=== PATIENT | male | born 1980 | race Hispanic/Latino ===

== ENCOUNTER 2020-02-27 02:53 | Emergency (ER) | payer SELFPAY | END 2020-02-27 03:46 | disposition home or self-care (01) | LOC: ERS 02:53 | DX: S01.01XA Laceration without foreign body of scalp, initial encounter (principal); W18.2XXA Fall in (into) shower or empty bathtub, initial encounter; Y92.002 Bathroom of unspecified non-institutional (private) residence as the place of occurrence of the external cause | CPT/HCPCS: 99282 ==

== ENCOUNTER 2021-07-02 20:28 | Emergency (ER) | payer SELFPAY ==
[~2021-07-02 20:28] MED LIST: Iopamidol-370 76% 500 ML 1 ML ONE
[2021-07-02 22:10] LABS: ALT (SGPT) 127 U/L (8-55); AST (SGOT) 166 U/L (5-34); Alkaline Phosphatase 180 U/L (40-110); Anion Gap 12 mmol/L (10-20); BUN (Urea Nitrogen) 6 mg/dL (8.9-20.6); Bilirubin, Total 1.6 mg/dL (0.2-1.2); Calc. Creatinine Clearance 0 mL/min (70-130); Calcium 9.8 mg/dL (7.8-10.44); Carbon Dioxide 29 mmol/L (22-29); Chloride 100 mmol/L (98-107); Globulin 4.1 g/dL (2.4-3.5); Glucose 137 mg/dL (70-105); Potassium 4.3 mmol/L (3.5-5.1); Protein, Total 8.1 g/dL (6.0-8.3); Sodium 137 mmol/L (136-145)
[2021-07-02 22:36] LABS: #Eosinphils 0.1 thou/uL (0.0-0.7); #Lymphocytes 1.6 thou/uL (1.20-3.40); #Monocytes 0.9 thou/uL (0.11-0.59); #Neutrophils 4.3 thou/uL (1.40-6.50); %Basophils 0.5 % (0.0-1.0); %Eosinophils 1.2 % (0.0-10.0); %Lymphocytes 23.1 % (21.0-51.0); %Monocytes 13.1 % (0.0-10.0); %Neutrophils 62.2 % (42.0-75.0); Mean Corpuscular HGB CONC 31.8 g/dL (32.0-36.0); Mean Corpuscular Hemoglobin 30.7 pg (27.0-31.0); Mean Corpuscular Volume 96.5 fL (78.0-98.0); Mean Platelet Volume 9.5 fL (7.4-10.4); Platelet Count 125 thou/uL (130-400); RBC Distribution Width 12.7 % (11.5-14.5); White Blood Cell (WBC) Count 6.9 thou/uL (4.8-10.8)
[2021-07-02] MEDS ORDERED: Morphine 4 MG/ML VIAL ONE (22:59)
[2021-07-02] MEDS ORDERED: Ampicillin 2 GM VIAL ONE (23:00)
[2021-07-02] MEDS ORDERED: Ondansetron PF 4 MG/2 ML Vial ONE (23:00)
[2021-07-02] MEDS ORDERED: Ampicillin/Sulbactam 3 GM in Sodium Chloride 0.9% 100 ML IVPB SCH (23:15)
[2021-07-03] MEDS ORDERED: HYDROcodone/Acetaminophen 5/325 mg Tablet ONE (02:18)
== END 2021-07-03 02:09 | disposition home or self-care (01) ==
LOC: ERS 20:28
DX: K04.7 Periapical abscess without sinus (principal); I10 Essential (primary) hypertension
CPT/HCPCS: 36415; 70487; 80053; 85025; 96374; 96375; J0290; J0295; J2270; J2405; J3490; Q9967

== ENCOUNTER 2022-04-07 20:22 | Emergency (ER) | payer SELFPAY ==
[2022-04-07 21:33] LABS: Hemoglobin 14.9 g/dL (14.0-18.0); Mean Corpuscular HGB CONC 32.1 g/dL (32.0-36.0); Mean Corpuscular Hemoglobin 32.3 pg (27.0-31.0); Mean Platelet Volume 8.9 fL (7.4-10.4); Platelet Count 123 thou/uL (130-400); RBC Distribution Width 13.1 % (11.5-14.5); Red Blood Cell (RBC) Count 4.62 mill/uL (4.70-6.10); White Blood Cell (WBC) Count 6.4 thou/uL (4.8-10.8)
[2022-04-07 21:46] LABS: INR-International Normal Ratio 1.1; PTT 30.8 sec (22.9-36.1); Prothrombin Time 14.1 sec (12.0-14.7)
[2022-04-07 21:52] LABS: Band 6 % (5-11); Lymphocytes 26 % (21-51); MDiff Complete? YES; Macrocytosis SLIGHT = 6-15 cells (100X) (0-5/hpf); Monocytes 6 % (0-10); Neutrophil 61 % (42-75); Platelet Morphology Comment Appears Decreased; Reactive Lymphocytes 1 % (0-10)
[2022-04-07 21:56] LABS: ALT (SGPT) 124 U/L (8-55); AST (SGOT) 205 U/L (5-34); Albumin 3.6 g/dL (3.5-5.0); Alkaline Phosphatase 209 U/L (40-110); Anion Gap 15 mmol/L (10-20); BUN (Urea Nitrogen) 6 mg/dL (8.9-20.6); Bilirubin, Total 0.9 mg/dL (0.2-1.2); Calc. Creatinine Clearance 0 mL/min (70-130); Carbon Dioxide 23 mmol/L (22-29); Chloride 102 mmol/L (98-107); Globulin 4.3 g/dL (2.4-3.5); Glucose 96 mg/dL (70-105); Potassium 3.9 mmol/L (3.5-5.1); Protein, Total 7.9 g/dL (6.0-8.3); Sodium 136 mmol/L (136-145)
== END 2022-04-07 22:46 | disposition home or self-care (01) ==
LOC: ERS 20:22
DX: K62.5 Hemorrhage of anus and rectum (principal); I10 Essential (primary) hypertension; K75.9 Inflammatory liver disease, unspecified
CPT/HCPCS: 36415; 71045; 80053; 83605; 84484; 85025; 85610; 85730; 86850; 86870; 86900; 86901; 86905

== ENCOUNTER 2022-07-09 21:51 | Inpatient (IN) | payer SELFPAY ==
[~2022-07-09 21:51] MED LIST changes: +Iopamidol 370 76% 100 ML VIAL ONE; -Iopamidol-370 76% 500 ML 1 ML ONE
[2022-07-09 23:14] LABS: Mean Corpuscular HGB CONC 32.9 g/dL (32.0-36.0); Mean Corpuscular Hemoglobin 33.4 pg (27.0-31.0); RBC Distribution Width 13.4 % (11.5-14.5); Red Blood Cell (RBC) Count 4.49 mill/uL (4.70-6.10); White Blood Cell (WBC) Count 5.7 thou/uL (4.8-10.8)
[2022-07-09] MEDS ORDERED: Ondansetron PF 4 MG/2 ML Vial ONE (23:18)
[2022-07-09] MEDS ORDERED: Morphine 4 MG/ML VIAL ONE (23:18)
[2022-07-09 23:21] LABS: ALT (SGPT) 128 U/L (8-55); AST (SGOT) 256 U/L (5-34); Albumin 3.9 g/dL (3.5-5.0); Alkaline Phosphatase 148 U/L (40-110); Anion Gap 17 mmol/L (10-20); BUN (Urea Nitrogen) 5 mg/dL (8.9-20.6); Bilirubin, Total 2.5 mg/dL (0.2-1.2); Calc. Creatinine Clearance 0 mL/min (70-130); Calcium 9.4 mg/dL (7.8-10.44); Carbon Dioxide 23 mmol/L (22-29); Chloride 101 mmol/L (98-107); Estimated GFR 115; Globulin 4.3 g/dL (2.4-3.5); Glucose 92 mg/dL (70-105); Potassium 3.8 mmol/L (3.5-5.1); Protein, Total 8.2 g/dL (6.0-8.3); Sodium 137 mmol/L (136-145)
[2022-07-10 00:03] LABS: Actual Bicarbonate (HCO3v) 26 mEq/L (22-28); Analyzer IN Cardio ER; Base Excess 3.1 mEq/L (-2.0 to +3.0); Calcium, Ionized (venous) 1.08 mmol/L (1.16-1.32); Chloride (VBG) 101 mmol/L (98-106); Potassium (VBG) 3.81 mmol/L (3.70-5.30); Sodium 137.4 mmol/L (133-146); pH (venous) 7.48 (7.32-7.43)
[2022-07-10 00:04] LABS: Band 2 % (5-11); Eosinophils 3 % (0-10); Lymphocytes 28 % (21-51); MDiff Complete? YES; Mean Platelet Volume 8.8 fL (7.4-10.4); Monocytes 20 % (0-10); Neutrophil 46 % (42-75); Platelet Count 106 thou/uL (130-400); Platelet Morphology Comment Appears Decreased
[2022-07-10] MEDS ORDERED: Ondansetron ODT 4 MG TAB SL PRN (01:30)
[2022-07-10] MEDS ORDERED: Ondansetron PF 4 MG/2 ML Vial IVP PRN (01:30)
[2022-07-10] MEDS ORDERED: Morphine 4 MG/ML VIAL ONE (01:31)
[2022-07-10 02:01] LABS: Lactic Acid 1.5 mmol/L (0.5-2.2)
[2022-07-10 02:26] VITALS: BMI 30.3
[2022-07-10] MEDS ORDERED: Cyclobenzaprine 10 MG TAB PO SCH (02:45)
[2022-07-10] MEDS ORDERED: Acetaminophen 325 MG TAB PO PRN (04:24)
[2022-07-10] MEDS ORDERED: Acetaminophen 650 MG Suppository PR PRN (04:24)
[2022-07-10] MEDS: Morphine 4 MG/ML VIAL SLOW IVP PRN ×3 (04:39→13:45)
[2022-07-10 04:58] LABS: SARS-CoV-2 NAA Rapid Test Not Detected (NotDetected)
[2022-07-10] MEDS ORDERED: Pantoprazole 40 MG VIAL IVP SCH (05:30)
[2022-07-10 07:37] LABS: ALT (SGPT) 112 U/L (8-55); AST (SGOT) 225 U/L (5-34); Albumin 3.4 g/dL (3.5-5.0); Alkaline Phosphatase 124 U/L (40-110); Anion Gap 15 mmol/L (10-20); BUN (Urea Nitrogen) 5 mg/dL (8.9-20.6); Calc. Creatinine Clearance 179 mL/min (70-130); Calcium 8.9 mg/dL (7.8-10.44); Carbon Dioxide 21 mmol/L (22-29); Chloride 101 mmol/L (98-107); Estimated GFR 116; Glucose 97 mg/dL (70-105); Magnesium 1.8 mg/dL (1.6-2.6); Phosphorus 4.1 mg/dL (2.3-4.7); Potassium 3.6 mmol/L (3.5-5.1); Protein, Total 7.4 g/dL (6.0-8.3); Sodium 133 mmol/L (136-145)
[2022-07-10 08:24] LABS: INR-International Normal Ratio 1.3; Prothrombin Time 16.3 sec (12.0-14.7)
[2022-07-10 08:25] LABS: PTT 34.1 sec (22.9-36.1)
[2022-07-10 08:32] LABS: Eosinophils 3 % (0-10); Hemoglobin 13.8 g/dL (14.0-18.0); Lymphocytes 30 % (21-51); MDiff Complete? YES; Macrocytosis SLIGHT = 6-15 cells (100X) (0-5/hpf); Mean Corpuscular HGB CONC 32.5 g/dL (32.0-36.0); Mean Corpuscular Hemoglobin 32.7 pg (27.0-31.0); Mean Platelet Volume 8.5 fL (7.4-10.4); Monocytes 15 % (0-10); Neutrophil 52 % (42-75); Ovalocytes SLIGHT = 2-5 cells (100X) (0-1/hpf); Platelet Count 87 thou/uL (130-400); Platelet Morphology Comment Appears Decreased; RBC Distribution Width 13.2 % (11.5-14.5); Red Blood Cell (RBC) Count 4.21 mill/uL (4.70-6.10); White Blood Cell (WBC) Count 4.6 thou/uL (4.8-10.8)
[2022-07-10] MEDS ORDERED: Enoxaparin Sodium 40 MG/0.4 ML SYRINGE SC SCH (09:00)
[2022-07-10] MEDS ORDERED: GoLYTELY 4,000 ml Bottle PO SCH (13:30)
[2022-07-10] MEDS ORDERED: diphenhydrAMINE 25 MG CAP PO PRN (14:43)
[2022-07-10] MEDS: Pantoprazole 40 MG VIAL IVP SCH (20:07)
[2022-07-10] MEDS: Multivit, Therapeutic 1 TAB PO SCH (20:07)
[2022-07-10] MEDS: traMADol HCl 50 MG TAB PO PRN (20:07)
[2022-07-10] MEDS: Folic Acid 1 MG TAB PO SCH (20:08)
[2022-07-10] MEDS ORDERED: Thiamine 100 MG TAB PO SCH (21:00)
[2022-07-11 05:50] LABS: ALT (SGPT) 104 U/L (8-55); AST (SGOT) 211 U/L (5-34); Alkaline Phosphatase 109 U/L (40-110); Anion Gap 9 mmol/L (10-20); BUN (Urea Nitrogen) 5 mg/dL (8.9-20.6); Bilirubin, Total 3.7 mg/dL (0.2-1.2); Calc. Creatinine Clearance 195 mL/min (70-130); Calcium 8.3 mg/dL (7.8-10.44); Carbon Dioxide 26 mmol/L (22-29); Chloride 100 mmol/L (98-107); Estimated GFR 120; Globulin 3.6 g/dL (2.4-3.5); Glucose 83 mg/dL (70-105); Iron 216 ug/dL (65-175); Iron Binding Capacity, Total 204 mcg/dL (261-462); Protein, Total 6.6 g/dL (6.0-8.3); Sodium 131 mmol/L (136-145)
[2022-07-11 06:05] LABS: Ferritin 486.93 ng/mL (22-322)
[2022-07-11 06:18] LABS: HBCM Index 0.14 S/CO (0-0.79); HBSAg Index 0.35 S/CO (0-0.99); Hep A IgM AB Non-Reactive (NonReactive); Hep A IgM S/CO 0.17 S/CO (0-0.79); Hep B Surf Ag Non-Reactive S/CO (NonReactive); Hepatitis B Core IgM Abs Non-Reactive (NonReactive)
[2022-07-11 06:21] LABS: Hep C IgG Ab Reflex HepC Qnt (NonReactive); Hep C Index 17.91 S/CO (0-0.79)
[2022-07-11 07:06] LABS: Band 2 % (5-11); Eosinophils 1 % (0-10); Hemoglobin 13.6 g/dL (14.0-18.0); Lymphocytes 38 % (21-51); MDiff Complete? YES; Mean Corpuscular HGB CONC 31.9 g/dL (32.0-36.0); Mean Corpuscular Hemoglobin 32.7 pg (27.0-31.0); Mean Platelet Volume 8.7 fL (7.4-10.4); Monocytes 9 % (0-10); Neutrophil 49 % (42-75); Platelet Count 75 thou/uL (130-400); Platelet Morphology Comment Appears Decreased; RBC Distribution Width 13.1 % (11.5-14.5); Red Blood Cell (RBC) Count 4.16 mill/uL (4.70-6.10); White Blood Cell (WBC) Count 3.2 thou/uL (4.8-10.8)
[2022-07-11] MEDS ORDERED: Fentanyl 100 MCG/2 ML VIAL ONE (07:59)
[2022-07-11] MEDS ORDERED: Succinylcholine 200 MG/10 ml SYRINGE FS ONE (08:06)
[2022-07-11] MEDS ORDERED: PROPOFOL 200 MG/20 ML VIAL ONE (08:06)
[2022-07-11] MEDS ORDERED: Lidocaine 1% MPF 2 ML VIAL ONE (08:06)
[2022-07-11] MEDS ORDERED: Ondansetron PF 4 MG/2 ML Vial ONE (08:06)
[2022-07-11] MEDS ORDERED: Pantoprazole 40 MG VIAL IVP SCH (09:00)
[2022-07-11] MEDS: Pantoprazole 40 MG VIAL IVP SCH ×2 (10:31→20:26)
[2022-07-11 15:32] LABS: ANA Symphony (Qualitative) POSITIVE (Negative); ANA Symphony (Quantitative) 1.5 Ratio (< 0.7 Negative); CENP IgG Antibody 1.2 EliAU/mL (<7 Negative); EliA Vaculitis New Method **** NEW METHOD ****; Jo-1 IgG Antibody 0.7 EliAU/mL (<7 Negative); Mitochondrial Ab 1.8 U/mL (<4 Negative); RNP70 IgG Antibody 1.3 EliAU/mL (<7 Negative); SSA/Ro IgG Antibody 9.8 EliAU/mL (<7 Negative); SSB/La IgG Antibody 0.9 EliAU/mL (<7 Negative); Scleroderma-70 IgG Antibody 1.3 EliAU/mL (<7 Negative); Smith D IgG Antibody 3.2 EliAU/mL (<7 Negative); dsDNA IgG Antibody 2.5 IU/mL (<10 Negative)
[2022-07-11] MEDS ORDERED: Ondansetron ODT 4 MG TAB PO PRN (15:54)
[2022-07-11] MEDS ORDERED: Electrolyte Replacement Protocol 1 EACH FS SCH (16:00)
[2022-07-11] MEDS ORDERED: Electrolyte Replacement Protocol FS PRN (16:00)
[2022-07-11] MEDS ORDERED: Hydrocortisone 2.5%/Pramoxine 1% CRM 30 GM TUBE PR PRN (16:00)
[2022-07-11] MEDS ORDERED: Thiamine HCl 200 MG/2 ML VIAL SLOW IVP SCH (16:00)
[2022-07-11] MEDS ORDERED: Magnesium 2 GM/50 ML(in water) 2 GM in Premix Bag 1 BAG IVPB SCH (20:15)
[2022-07-11] MEDS: Multivit, Therapeutic 1 TAB PO SCH (20:25)
[2022-07-11] MEDS: Folic Acid 1 MG TAB PO SCH (20:26)
[2022-07-11] MEDS: traMADol HCl 50 MG TAB PO PRN (20:34)
[2022-07-12 05:59] LABS: AST (SGOT) 213 U/L (5-34); Bilirubin, Direct 0.7 mg/dL (0.1-0.3); Bilirubin, Total 1.4 mg/dL (0.2-1.2); Calcium 8.4 mg/dL (7.8-10.44); Chloride 105 mmol/L (98-107); Potassium 4.3 mmol/L (3.5-5.1); Sodium 132 mmol/L (136-145)
[2022-07-12 06:14] LABS: ALT (SGPT) 100 U/L (8-55); Albumin 2.8 g/dL (3.5-5.0); Alkaline Phosphatase 167 U/L (40-110); Anion Gap 14 mmol/L (10-20); BUN (Urea Nitrogen) 8 mg/dL (8.9-20.6); Calc. Creatinine Clearance 172 mL/min (70-130); Carbon Dioxide 18 mmol/L (22-29); Estimated GFR 115; Glucose 119 mg/dL (70-105); Protein, Total 6.6 g/dL (6.0-8.3)
[2022-07-12 07:21] LABS: Eosinophils 2 % (0-10); Lymphocytes 28 % (21-51); MDiff Complete? YES; Mean Corpuscular HGB CONC 32.1 g/dL (32.0-36.0); Mean Platelet Volume 9.6 fL (7.4-10.4); Monocytes 14 % (0-10); Neutrophil 56 % (42-75); Platelet Count 74 thou/uL (130-400); Platelet Morphology Comment Appears Decreased; RBC Distribution Width 13.2 % (11.5-14.5); Red Blood Cell (RBC) Count 4.11 mill/uL (4.70-6.10); White Blood Cell (WBC) Count 3.3 thou/uL (4.8-10.8)
[2022-07-12] MEDS: Pantoprazole 40 MG VIAL IVP SCH (08:05)
[2022-07-12] MEDS: traMADol HCl 50 MG TAB PO PRN (08:58)
[2022-07-12 15:26] VITALS: BP 151/67; TEMP 97.3
[2022-07-12 15:37] LABS: Alpha-1-Antitrypsin 128 mg/dL (101-187)
[2022-07-13 12:14] LABS: HCV RNA, log10 4.799 (.); Hep C PCR-Quant 63000 IU/mL (.)
[2022-07-14] MEDS ORDERED: Thiamine 100 MG TAB PO SCH (21:00)
[2022-07-15 14:13] LABS: Smooth Muscle Total ABS 22 Units (0-19)
== END 2022-07-12 17:56 | disposition home or self-care (01) | DRG 433 ==
LOC: ERS 21:51 → OBSVTOIN 07-10 01:13 → SURG A 07-10 01:13
PROVIDERS: ADMIT Student in an Organized Health Care Education/Training Program; ATTEND Internal Medicine
PROC: 0DB78ZX Excision of Stomach, Pylorus, Via Natural or Artificial Opening Endoscopic, Diagnostic (ICD-10-PCS; principal; 2022-07-11)
PROC: 0DJD8ZZ Inspection of Lower Intestinal Tract, Via Natural or Artificial Opening Endoscopic (ICD-10-PCS; 2022-07-11)
DX: K70.30 Alcoholic cirrhosis of liver without ascites (principal); D68.9 Coagulation defect, unspecified; K76.6 Portal hypertension; K92.0 Hematemesis; Z20.822 Contact with and (suspected) exposure to COVID-19; I10 Essential (primary) hypertension; B18.2 Chronic viral hepatitis C; D69.59 Other secondary thrombocytopenia; R19.8 Other specified symptoms and signs involving the digestive system and abdomen; K64.8 Other hemorrhoids; K64.4 Residual hemorrhoidal skin tags; K31.89 Other diseases of stomach and duodenum; F10.20 Alcohol dependence, uncomplicated; Z90.49 Acquired absence of other specified parts of digestive tract; Z88.8 Allergy status to other drugs, medicaments and biological substances; Z28.311 Partially vaccinated for COVID-19
CPT/HCPCS: 36415; 71046; 74177; 76705; 80048; 80053; 80074; 80076; 82103; 82105; 82140; 82390; 82728; 82805; 83516; 83540; 83550; 83605; 83690; 83735; 84100; 85025; 85610; 85730; 86015; 86038; 86225; 86235; 87040; 87522; 88305; 88342; 96374; 96375; 96376; C9113; G0378; J2270; J2405; J2704; J3010; J3411; J3475; Q0162; Q9967; U0002

== ENCOUNTER → 2023-01-11 | Emergency (ER) | payer SELFPAY ==
[~2023-01-11] MED LIST changes: -Iopamidol 370 76% 100 ML VIAL ONE; +Lorazepam 1 MG TAB ONE; +Ondansetron ODT 8 MG TAB ONE
[2023-01-11 04:35] LABS: #Basophils 0.1 thou/uL (0.0-0.2); #Eosinphils 0.1 thou/uL (0.0-0.7); #Lymphocytes 2.7 thou/uL (1.20-3.40); #Monocytes 0.6 thou/uL (0.11-0.59); #Neutrophils 2.6 thou/uL (1.40-6.50); %Basophils 1.5 % (0.0-1.0); %Eosinophils 2.2 % (0.0-10.0); %Lymphocytes 43.5 % (21.0-51.0); %Monocytes 9.5 % (0.0-10.0); %Neutrophils 43.3 % (42.0-75.0); Hemoglobin 14.6 g/dL (14.0-18.0); Mean Corpuscular HGB CONC 32.8 g/dL (32.0-36.0); Mean Corpuscular Hemoglobin 33.2 pg (27.0-31.0); Platelet Count 150 10x3/uL (130-400); RBC Distribution Width 13.1 % (11.5-14.5); Red Blood Cell (RBC) Count 4.39 mill/uL (4.70-6.10); White Blood Cell (WBC) Count 6.1 10x3/uL (4.8-10.8)
[2023-01-11 04:53] LABS: ALT (SGPT) 87 U/L (8-55); AST (SGOT) 186 U/L (5-34); Albumin 3.4 g/dL (3.5-5.0); Alkaline Phosphatase 158 U/L (40-110); Anion Gap 14 mmol/L (10-20); BUN (Urea Nitrogen) 6 mg/dL (8.9-20.6); Bilirubin, Total 1.4 mg/dL (0.2-1.2); Calc. Creatinine Clearance 0 mL/min (70-130); Calcium 8.4 mg/dL (7.8-10.44); Carbon Dioxide 23 mmol/L (22-29); Chloride 104 mmol/L (98-107); Estimated GFR 109; Globulin 4.4 g/dL (2.4-3.5); Glucose 216 mg/dL (70-105); Potassium 3.6 mmol/L (3.5-5.1); Protein, Total 7.8 g/dL (6.0-8.3); Sodium 137 mmol/L (136-145)
[2023-01-11 04:57] LABS: Alcohol 203 mg/dL (Less than 10); Salicylate Less than 8.0 mg/dL (15.0-30.0)
[2023-01-11 08:58] LABS: Bilirubin Negative (Negative); Blood, Urine Negative (Negative); Clarity Clear (Clear); Glucose, Urine (Dipstick) Normal (Negative); Ketone, Urine Negative (Negative); Leukocyte Negative Leu/uL (Negative); Nitrite Negative (Negative); Protein, Urine (Dipstick) 20 mg/dL (Neg-Trace); pH, Urine 5.5 (5.0-9.0)
[2023-01-11 09:07] LABS: Amphetamine Not Detected (NotDetected); Barbiturates Screen Not Detected (NotDetected); Benzodiazepine Screen Not Detected (NotDetected); Cocaine Metabolite Screen Not Detected (NotDetected); Methadone Not Detected (NotDetected); Methamphetamine Not Detected (NotDetected); Opiate Screen Not Detected (NotDetected); Oxycodone Screen Not Detected (NotDetected); Phencyclidine (PCP) Not Detected (NotDetected); THC/Cannabinoid Screen Detected (NotDetected); Tricyclic Screen Not Detected (NotDetected)
[2023-01-11 12:10] LABS: Magnesium 1.8 mg/dL (1.6-2.6)
== END ==
LOC: ERS 03:53
DX: R45.851 Suicidal ideations (principal); I10 Essential (primary) hypertension; F10.10 Alcohol abuse, uncomplicated; Y90.7 Blood alcohol level of 200-239 mg/100 ml
CPT/HCPCS: 36415; 80053; 80306; 80307; 81003; 83735; 84443; 84484; 85025; 93005; Q0162

== ENCOUNTER 2023-02-15 01:23 | Emergency (ER) | payer SELFPAY ==
[2023-02-15] MEDS ORDERED: Ketorolac Tromethamine 30 MG/ML VIAL ONE (02:01)
[2023-02-15 02:11] LABS: Hemoglobin 14.4 g/dL (14.0-18.0); Mean Corpuscular HGB CONC 33.3 g/dL (32.0-36.0); Mean Corpuscular Hemoglobin 33.7 pg (27.0-31.0); RBC Distribution Width 13.2 % (11.5-14.5); Red Blood Cell (RBC) Count 4.27 mill/uL (4.70-6.10); White Blood Cell (WBC) Count 5.1 10x3/uL (4.8-10.8)
[2023-02-15 02:19] LABS: INR-International Normal Ratio 1.1
[2023-02-15 02:20] LABS: PTT 31.5 sec (22.9-36.1)
[2023-02-15 02:22] LABS: #Basophils 0.1 thou/uL (0.0-0.2); #Eosinphils 0.1 thou/uL (0.0-0.7); #Lymphocytes 1.7 thou/uL (1.20-3.40); #Monocytes 0.6 thou/uL (0.11-0.59); #Neutrophils 2.6 thou/uL (1.40-6.50); %Eosinophils 2.6 % (0.0-10.0); %Lymphocytes 33.5 % (21.0-51.0); %Monocytes 11.4 % (0.0-10.0); %Neutrophils 51.4 % (42.0-75.0); Mean Platelet Volume 8.8 fL (7.4-10.4); Platelet Count 92 10x3/uL (130-400)
[2023-02-15 02:23] LABS: Platelet Morphology Comment Appears Decreased
[2023-02-15 02:31] LABS: ALT (SGPT) 86 U/L (8-55); AST (SGOT) 189 U/L (5-34); Alkaline Phosphatase 258 U/L (40-110); Anion Gap 12 mmol/L (10-20); BUN (Urea Nitrogen) 6 mg/dL (8.9-20.6); Bilirubin, Total 1.1 mg/dL (0.2-1.2); Calc. Creatinine Clearance 0 mL/min (70-130); Calcium 8.3 mg/dL (7.8-10.44); Carbon Dioxide 22 mmol/L (22-29); Chloride 107 mmol/L (98-107); Estimated GFR 114; Globulin 4.6 g/dL (2.4-3.5); Glucose 112 mg/dL (70-105); Lipase 72 U/L (8-78); Potassium 4.7 mmol/L (3.5-5.1); Protein, Total 7.6 g/dL (6.0-8.3); Sodium 136 mmol/L (136-145)
== END 2023-02-15 04:31 | disposition home or self-care (01) ==
LOC: ERS 01:23
DX: S70.12XA Contusion of left thigh, initial encounter (principal); R11.2 Nausea with vomiting, unspecified; R19.7 Diarrhea, unspecified; I10 Essential (primary) hypertension
CPT/HCPCS: 36415; 80053; 83690; 85025; 85610; 85730; 96372; J1885

== ENCOUNTER 2023-10-12 19:42 | Observation (INO) | payer SELFPAY ==
[~2023-10-12 19:42] MED LIST changes: +Iopamidol 370 76% 100 ML VIAL ONE; -Lorazepam 1 MG TAB ONE; -Ondansetron ODT 8 MG TAB ONE
[2023-10-12] MEDS ORDERED: Ondansetron PF 4 MG/2 ML Vial ONE (20:23)
[2023-10-12] MEDS ORDERED: Morphine 4 MG/ML VIAL ONE (20:23)
[2023-10-12 21:16] LABS: #Basophils 0.1 thou/uL (0.0-0.2); #Eosinphils 0.1 thou/uL (0.0-0.7); #Monocytes 0.6 thou/uL (0.11-0.59); #Neutrophils 1.5 thou/uL (1.40-6.50); %Basophils 1.6 % (0.0-1.0); %Lymphocytes 38.2 % (21.0-51.0); %Monocytes 16.8 % (0.0-10.0); %Neutrophils 40.4 % (42.0-75.0); Hematocrit 39.5 % (42.0-52.0); Hemoglobin 13.2 g/dL (14.0-18.0); Mean Corpuscular HGB CONC 33.4 g/dL (32.0-36.0); Mean Corpuscular Volume 98.8 fl (78.0-98.0); Mean Platelet Volume 10.9 fL (7.4-10.4); Platelet Count 113 10x3/uL (130-400); RBC Distribution Width 15.1 % (11.5-14.5); White Blood Cell (WBC) Count 3.6 10x3/uL (4.8-10.8)
[2023-10-12 21:35] LABS: ALT (SGPT) 91 U/L (8-55); AST (SGOT) 201 U/L (5-34); Albumin 2.6 g/dL (3.5-5.0); Alkaline Phosphatase 145 U/L (40-110); Anion Gap 14 mmol/L (10-20); BUN (Urea Nitrogen) 4 mg/dL (8.9-20.6); Bilirubin, Total 2.2 mg/dL (0.2-1.2); Calc. Creatinine Clearance 0 mL/min (70-130); Calcium 7.9 mg/dL (7.8-10.44); Carbon Dioxide 21 mmol/L (22-29); Chloride 106 mmol/L (98-107); Estimated GFR 117; Globulin 4.3 g/dL (2.4-3.5); Glucose 106 mg/dL (70-105); Lipase 32 U/L (8-78); Potassium 4.2 mmol/L (3.5-5.1); Protein, Total 6.9 g/dL (6.0-8.3); Sodium 137 mmol/L (136-145); Troponin I Less than 0.010 ng/mL (< 0.028)
[2023-10-12 21:40] LABS: Bacteria/HPF None Seen HPF (None Seen); Bilirubin Negative (Negative); Blood, Urine Negative (Negative); CAUTI Indications for Culture Alt mental st,lethar; Clarity Clear (Clear); Glucose, Urine (Dipstick) Normal (Negative); Ketone, Urine Trace mg/dL (Negative); Leukocyte Negative Leu/uL (Negative); Nitrite Negative (Negative); Protein, Urine (Dipstick) 30 mg/dL (Neg-Trace); RBC/HPF 0-3 HPF (0-3); Specific Gravity, Urine 1.028 (1.002-1.036); Squamous Epithelial 0-3 HPF (0-3); Urobilinogen 6 mg/dL (Less than 2); WBC/HPF 0-3 HPF (0-3)
[2023-10-12 21:42] LABS: Urine Culture Reflex No No
[2023-10-12 21:51] LABS: Platelet Adequacy Comment Appears Adequate
[2023-10-13] MEDS ORDERED: Thiamine HCl 200 MG/2 ML VIAL ONE (00:52)
[2023-10-13] MEDS ORDERED: Pantoprazole 40 MG VIAL ONE (00:53)
[2023-10-13] MEDS ORDERED: Octreotide Acetate 100 MCG/ML VIAL ONE (00:53)
[2023-10-13] MEDS ORDERED: Acetaminophen 325 MG TAB PO PRN ×2 (01:15→08:39)
[2023-10-13] MEDS ORDERED: Ondansetron ODT 4 MG TAB SL PRN (01:15)
[2023-10-13] MEDS ORDERED: Ondansetron PF 4 MG/2 ML Vial IVP PRN (01:15)
[2023-10-13] MEDS ORDERED: Lorazepam 2 MG/ML VIAL IM PRN (01:47)
[2023-10-13] MEDS ORDERED: Ondansetron ODT 4 MG TAB PO PRN (01:47)
[2023-10-13] MEDS ORDERED: Lorazepam 1 MG TAB PO PRN (01:47)
[2023-10-13] MEDS ORDERED: Electrolyte Replacement Protocol 1 EACH FS PRN (02:00)
[2023-10-13 02:07] VITALS: BMI 29.7
[2023-10-13] MEDS: Lactated Ringer's 1,000 ML IV SCH ×2 (02:13→10:07)
[2023-10-13] MEDS: Lorazepam 1 MG TAB PO SCH ×4 (02:13→20:29)
[2023-10-13] MEDS: Thiamine HCl 200 MG/2 ML VIAL SLOW IVP SCH (02:13)
[2023-10-13] MEDS: Morphine 4 MG/ML VIAL SLOW IVP PRN ×2 (02:32→22:46)
[2023-10-13 02:34] LABS: Bilirubin, Direct 1.1 mg/dL (0.1-0.3); Magnesium 1.6 mg/dL (1.6-2.6); Phosphorus 2.9 mg/dL (2.3-4.7)
[2023-10-13] MEDS: Morphine 2 MG/ML VIAL SLOW IVP PRN ×2 (05:18→18:27)
[2023-10-13 06:32] LABS: Amphetamine Not Detected (NotDetected); Barbiturates Screen Not Detected (NotDetected); Benzodiazepine Screen Not Detected (NotDetected); Cocaine Metabolite Screen Not Detected (NotDetected); Methadone Not Detected (NotDetected); Methamphetamine Not Detected (NotDetected); Opiate Screen Detected (NotDetected); Oxycodone Screen Not Detected (NotDetected); Phencyclidine (PCP) Not Detected (NotDetected); THC/Cannabinoid Screen Detected (NotDetected); Tricyclic Screen Not Detected (NotDetected)
[2023-10-13 06:43] LABS: #Basophils 0.1 thou/uL (0.0-0.2); #Eosinphils 0.1 thou/uL (0.0-0.7); #Monocytes 0.6 thou/uL (0.11-0.59); %Basophils 1.1 % (0.0-1.0); %Eosinophils 2.9 % (0.0-10.0); %Lymphocytes 39.5 % (21.0-51.0); %Monocytes 12.6 % (0.0-10.0); %Neutrophils 43.7 % (42.0-75.0); Hematocrit 41.3 % (42.0-52.0); Hemoglobin 13.9 g/dL (14.0-18.0); Mean Corpuscular HGB CONC 33.7 g/dL (32.0-36.0); Mean Corpuscular Hemoglobin 32.9 pg (27.0-31.0); Mean Corpuscular Volume 97.6 fl (78.0-98.0); Mean Platelet Volume 11.1 fL (7.4-10.4); Platelet Count 123 10x3/uL (130-400); RBC Distribution Width 15.1 % (11.5-14.5); Red Blood Cell (RBC) Count 4.23 mill/uL (4.70-6.10); White Blood Cell (WBC) Count 4.5 10x3/uL (4.8-10.8)
[2023-10-13 07:16] LABS: ALT (SGPT) 95 U/L (8-55); AST (SGOT) 211 U/L (5-34); Albumin 2.8 g/dL (3.5-5.0); Alkaline Phosphatase 149 U/L (40-110); Anion Gap 12 mmol/L (10-20); BUN (Urea Nitrogen) 4 mg/dL (8.9-20.6); Bilirubin, Total 3.3 mg/dL (0.2-1.2); Calc. Creatinine Clearance 181 mL/min (70-130); Calcium 8.3 mg/dL (7.8-10.44); Carbon Dioxide 22 mmol/L (22-29); Chloride 104 mmol/L (98-107); Estimated GFR 116; Globulin 4.7 g/dL (2.4-3.5); Glucose 88 mg/dL (70-105); Iron 187 ug/dL (65-175); Iron Binding Capacity, Total 189 mcg/dL (261-462); Potassium 4.2 mmol/L (3.5-5.1); Protein, Total 7.5 g/dL (6.0-8.3); Sodium 134 mmol/L (136-145)
[2023-10-13] MEDS ORDERED: Magnesium 2 GM/50 ML(in water) 2 GM in Premix 1 BAG IVPB SCH (08:00)
[2023-10-13] MEDS: Folic Acid 1 MG TAB PO SCH (08:42)
[2023-10-13] MEDS: Multivit, Therapeutic 1 TAB PO SCH (08:42)
[2023-10-13] MEDS: Pantoprazole 40 MG VIAL IVP SCH ×2 (08:50→20:29)
[2023-10-13] MEDS ORDERED: Famotidine 20 MG TAB PO SCH (09:00)
[2023-10-13 12:21] LABS: Hematocrit 38.4 % (42.0-52.0); Hemoglobin 12.8 g/dL (14.0-18.0)
[2023-10-14] MEDS ORDERED: Lorazepam 1 MG TAB PO PRN (01:47)
[2023-10-14] MEDS: Thiamine HCl 200 MG/2 ML VIAL SLOW IVP SCH (02:22)
[2023-10-14] MEDS: Lorazepam 1 MG TAB PO SCH ×4 (02:23→20:13)
[2023-10-14] MEDS: Morphine 2 MG/ML VIAL SLOW IVP PRN ×4 (03:03→20:13)
[2023-10-14] MEDS: Multivit, Therapeutic 1 TAB PO SCH (09:15)
[2023-10-14] MEDS: Methylcellulose 500 MG TAB PO SCH (09:15)
[2023-10-14] MEDS: Pantoprazole 40 MG VIAL IVP SCH (09:15)
[2023-10-14] MEDS: Folic Acid 1 MG TAB PO SCH (09:15)
[2023-10-14 10:19] LABS: Hematocrit 34.1 % (42.0-52.0); Hemoglobin 11.5 g/dL (14.0-18.0); Mean Corpuscular HGB CONC 33.7 g/dL (32.0-36.0); Mean Corpuscular Hemoglobin 33.3 pg (27.0-31.0); Mean Corpuscular Volume 98.8 fl (78.0-98.0); Mean Platelet Volume 10.9 fL (7.4-10.4); RBC Distribution Width 14.4 % (11.5-14.5); Red Blood Cell (RBC) Count 3.45 mill/uL (4.70-6.10); White Blood Cell (WBC) Count 3.1 10x3/uL (4.8-10.8)
[2023-10-14 10:20] LABS: Platelet Count 83 10x3/uL (130-400)
[2023-10-15] MEDS: Thiamine HCl 200 MG/2 ML VIAL SLOW IVP SCH (01:09)
[2023-10-15] MEDS: Lorazepam 0.5 MG TAB PO SCH ×2 (01:10→09:04)
[2023-10-15] MEDS: Morphine 2 MG/ML VIAL SLOW IVP PRN ×2 (01:10→05:58)
[2023-10-15] MEDS ORDERED: Lorazepam 1 MG TAB PO PRN (01:47)
[2023-10-15 07:55] LABS: #Eosinphils 0.2 thou/uL (0.0-0.7); #Monocytes 0.6 thou/uL (0.11-0.59); #Neutrophils 1.5 thou/uL (1.40-6.50); %Basophils 0.8 % (0.0-1.0); %Eosinophils 5.3 % (0.0-10.0); %Lymphocytes 38.7 % (21.0-51.0); %Monocytes 15.5 % (0.0-10.0); %Neutrophils 39.7 % (42.0-75.0); Hematocrit 35.8 % (42.0-52.0); Hemoglobin 11.9 g/dL (14.0-18.0); Mean Corpuscular HGB CONC 33.2 g/dL (32.0-36.0); Mean Corpuscular Hemoglobin 33.1 pg (27.0-31.0); Mean Corpuscular Volume 99.4 fl (78.0-98.0); Mean Platelet Volume 11.3 fL (7.4-10.4); RBC Distribution Width 14.4 % (11.5-14.5); White Blood Cell (WBC) Count 3.8 10x3/uL (4.8-10.8)
[2023-10-15 07:56] LABS: Platelet Count 85 10x3/uL (130-400)
[2023-10-15 08:16] LABS: ALT (SGPT) 74 U/L (8-55); AST (SGOT) 154 U/L (5-34); Albumin 2.2 g/dL (3.5-5.0); Alkaline Phosphatase 136 U/L (40-110); Anion Gap 9 mmol/L (10-20); BUN (Urea Nitrogen) Less than 4 mg/dL (8.9-20.6); Bilirubin, Total 2.7 mg/dL (0.2-1.2); Calc. Creatinine Clearance 189 mL/min (70-130); Calcium 7.8 mg/dL (7.8-10.44); Carbon Dioxide 25 mmol/L (22-29); Chloride 104 mmol/L (98-107); Estimated GFR 118; Glucose 90 mg/dL (70-105); Potassium 3.8 mmol/L (3.5-5.1); Protein, Total 6.2 g/dL (6.0-8.3); Sodium 134 mmol/L (136-145)
[2023-10-15] MEDS: Methylcellulose 500 MG TAB PO SCH (09:04)
[2023-10-15] MEDS: Folic Acid 1 MG TAB PO SCH (09:04)
[2023-10-15] MEDS: Multivit, Therapeutic 1 TAB PO SCH (09:04)
[2023-10-15 11:48] VITALS: BP 105/60; TEMP 98.4
[2023-10-16] MEDS ORDERED: Lorazepam 0.5 MG TAB PO PRN (01:47)
[2023-10-16] MEDS ORDERED: Thiamine 100 MG TAB PO SCH (02:00)
== END 2023-10-15 14:50 | disposition home or self-care (01) ==
LOC: ERS 19:42 → ERHOLD 10-13 00:48 → INTOOBSV 10-13 00:48 → T4-A 10-13 01:57
PROVIDERS: ADMIT Student in an Organized Health Care Education/Training Program; ATTEND Family Medicine
DX: K92.0 Hematemesis (principal); K92.1 Melena; K70.30 Alcoholic cirrhosis of liver without ascites; K70.10 Alcoholic hepatitis without ascites; B18.1 Chronic viral hepatitis B without delta-agent; F10.20 Alcohol dependence, uncomplicated; F12.10 Cannabis abuse, uncomplicated; F11.20 Opioid dependence, uncomplicated; F41.9 Anxiety disorder, unspecified; F43.10 Post-traumatic stress disorder, unspecified; G89.29 Other chronic pain; F31.9 Bipolar disorder, unspecified; Z90.89 Acquired absence of other organs; Z98.890 Other specified postprocedural states; Z79.890 Hormone replacement therapy; Z79.899 Other long term (current) drug therapy
CPT/HCPCS: 36415; 71045; 74177; 80053; 80306; 81001; 82140; 82248; 82728; 83540; 83550; 83690; 83735; 84100; 84484; 85025; 85027; 93005; 93010; 96361; 96374; 96375; 96376; C9113; G0378; J2270; J2272; J2354; J2405; J3411; J3475; J7120; Q9967